=== PATIENT | male | born 1990 | race Asian ===

== ENCOUNTER 2019-10-14 16:27 | Emergency (ER) | payer OTHER ==
[~2019-10-14] VITALS: Ht 172.7 cm; Wt 68.0 kg
--- NOTE | 2019-10-14 16:47 | Emergency Room Report ---
History of Present Illness General Chief Complaint: Skin Rash/Abscess Source: Patient Present Illness HPI Disclaimer: Please note that this report is being documented using [employer] technology. This can lead to erroneous entry secondary to incorrect interpretation by the dictating instrument. HPI: 29-year-old male presents for swelling under his chin. States there is been a lump there for approximately 1 year but it became acutely painful yesterday and believes it grew in size. No drainage, no bleeding. He was seen at urgent care and given an intramuscular dose of antibiotics as well as a prescription for oral antibiotics but is not yet picked up his prescription. Denies fever, chills, nausea, vomiting, difficulty swallowing, swelling of the neck, stridor or other symptoms. PMH: Denied PSH: Denied Allergies: Denied Social Hx: Denied Allergies: Coded Allergies: No Known Allergies (Unverified , 10/14/19) COVID-19 Screening Contact w/high risk pt: No Experienced COVID-19 symptoms?: No COVID-19 Testing performed WHEEL [employer]: No Nursing Documentation-PMH Past Medical History: No Stated History Review of Systems All Other Systems: negative except mentioned in HPI Physical Exam Vital Signs Date Time Temp Pulse Resp B/P (MAP) Pulse Ox O2 Delivery O2 Flow Rate FiO2 10/14/19 16:33 98.4 69 16 129/81 (97) 97 Room Air General: Awake and alert, no acute distress HEENT: NC/AT. EOMI. dentition intact, uvula midline, no obstruction, tolerating secretions, no stridor, speaking in full sentences. There is a tender erythematous raised fluctuant mass in the midline under the mandible. There is a pustule head on top. No active drainage or bleeding. No surrounding swelling or erythema. Resp: Normal work of breathing Skin: Intact. No abrasions, laceration or rash over the exposed skin MSK: Normal tone and bulk. Moving all extremities. No obvious deformity. Neuro: Awake and alert. Mentating appropriately Procedures Incision and Drainage Incision and Drainage : Consent: Verbal Blade Size: 11 I & D Procedure: betadine prep, sterile drapes applied, sterile dressing applied Wound Location: face Wound's Depth, Shape: superficial, linear Wound Length (cm): 1 Wound Explored: clean Irrigated w/ Saline (ccs): 20 Anesthesia: Lidocaine w/ Epi Volume Anesthetic (ccs): 5 Patient Tolerated: Well Complications: None Medical Decision Making Diagnostic Impression: Primary Impression: Facial abscess ER Course 29-year-old male presents with painful swelling under his chin. Concern for cellulitis, abscess, lipoma. Bedside ultrasound confirmed fluid collection consistent with abscess. No signs of systemic infection. Patient underwent incision and drainage at bedside by me which expressed a significant amount of purulent material. Wound was irrigated and bandage applied. See separate procedure section for full procedure details. Tolerated procedure well. No significant bleeding. Patient be started on oral antibiotics. We will follow- up with PMD. Discussed reasons to return to ED. He understands and agrees with treatment plan. Diagnostic POCUS Bedside Ultrasound Diagnostics: Bedside US Exam performed: Soft Tissue Limited Indication: Abcess/Cellulitis Number of Views: Limited Interpreted by Emergency Physi: Yes Soft Tissue Limited Findings: No cobblestone appearance, No foreign body, Other - Fluid-filled cavity without flow consistent with abscess Impression: Abscess Electronically Signed by: Electronically signed by Dr. Facundo Macias Last Vital Signs Date Time Temp Pulse Resp B/P (MAP) Pulse Ox O2 Delivery O2 Flow Rate FiO2 10/14/19 16:33 98.4 69 16 129/81 (97) 97 Room Air Disposition: HOME, SELF-CARE Condition: Stable Scripts Cephalexin* (KEFLEX*) 500 Mg Capsule 500 MG ORAL EVERY 6 HOURS for 7 Days, #28 CAP Prov: Facundo Macias MD 10/14/19 Facundo Macias MD Oct 14, 2019 16:47
[2019-10-14] MEDS ORDERED: Lidocaine 1% 10mg/ml/EPI 0.01mg/ml 30ml INJ ONE ×2 (16:54→17:00)
[2019-10-14 16:55] VITALS: BP 132/76
[2019-10-14] MEDS ORDERED: CEPHALEXIN500 MG ORAL (17:08)
[2019-10-14 17:27] VITALS: BP 127/74
== END 2019-10-14 17:26 | disposition home or self-care (01) ==
LOC: EMR 17:03
DX: L02.01 Cutaneous abscess of face (principal)
CPT/HCPCS: 99283